=== PATIENT | female | born 1970 | race American Indian/Alaskan Native ===

== ENCOUNTER 2016-06-11 12:33 | Inpatient (IN) | payer OTHER ==
--- NOTE | 2016-06-11 13:05 | Emergency Department Report ---
HPI - General Chief Complaint: Dyspnea/Respdistress Time Seen by Provider: 06/11/16 12:56 - HPI HPI: Chief complaint: Shortness of breath HPI: Patient is a 45-year-old female with history of obesity and hypertension states she began having shortness of breath last night with left-sided chest pain. Patient states shortness of breath is worse on laying flat seems to be better when she lay on her right side. Patient states she thinks she has been wheezing but has no history of asthma COPD or smoking. Patient states she's had leg edema for the last 9 years and is no worse or different. Patient states she did have some productive cough with green sputum that started last night. No fever, nausea, vomiting or diarrhea. Patient takes Tenoretic 50 mg a day and has been trying to stretch it out by not taking it every day as she has lost her insurance. Mode of arrival: private car Source: Patient Began: Last night in the middle of the night Duration: Continuous Context: Patient denies history of congestive heart failure Quality: Heaviness Severity: 7 out of 10 Improved with: Nothing Worsened with: Exertion and laying flat Associated signs and symptoms: See above ED Past Medical Hx - Past Medical History Previous Medical History?: Yes Hx Hypertension: Yes - Medications Home Medications: Home Medications Medication Instructions Recorded Confirmed Last Taken Type Lisinopril/Hydrochlorothiazide 1 tab PO DAILY 06/11/16 06/11/16 Unknown History [Zestoretic 20-25 mg] ED Review of Systems ROS: Stated complaint: CHEST PAIN,SOB Other details as noted in HPI ROS Constitutional: No fever ENT: No uri symptoms Cardiovascular: chest pain Respiratory: sob and cough GI: No nausea vomiting or diarrhea : No dysuria frequency or urgency, Skin: No rash Neuro: No focal weakness or numbness Psych: No depression Bhupendra/lymph: edema Physical Exam - Physical Exam Vital Signs: Vital Signs 06/11/16 12:38 Temperature 99.2 F Pulse Rate 92 H Respiratory 22 Rate Blood Pressure 191/103 O2 Sat by Pulse 100 Oximetry Physical Exam: GENERAL: The patient is an obese -Tajik female in no acute distress HEENT: Normocephalic. Atraumatic. Extraocular motions are intact. Patient has moist mucous membranes. NECK: Supple. No meningitic signs are noted. There is no adenopathy noted. CHEST/LUNGS: Clear to auscultation. There is no respiratory distress noted. HEART/CARDIOVASCULAR: Regular. There is no tachycardia. ABDOMEN: Abdomen is soft, nontender. Patient has normal bowel sounds. There is no abdominal distention. SKIN: There is no rash. There is bilateral pedal edema. There is no diaphoresis. NEURO: The patient is awake, alert, and oriented. The patient is cooperative. The patient has no focal neurologic deficits. The patient has normal speech. MUSCULOSKELETAL: There is no tenderness or deformity. There is no limitation range of motion. There is no evidence of acute injury. ED Course Vital Signs 06/11/16 12:38 Temperature 99.2 F Pulse Rate 92 H Respiratory 22 Rate Blood Pressure 191/103 O2 Sat by Pulse 100 Oximetry - Reevaluation(s) Reevaluation #1: 06/11/16 16:37 Patient given 20 mg of IV Lasix, sublingual nitroglycerin an inch of nitroglycerin paste. Patient admitted to the hospitalist. Because of her elevated d-dimer CTA of the chest was performed and showed no pulmonary embolism. ED Medical Decision Making - Lab Data Result diagrams: 06/11/16 13:00 06/11/16 13:00 Laboratory Tests 06/11/16 06/11/16 13:00 13:00 D-Dimer 1297.28 H NT-Pro-B Natriuret Pep 567.5 H - EKG Data -: EKG Interpreted by Me EKG shows normal: sinus rhythm Rate: normal (97) - EKG Data When compared to previous EKG there are: previous EKG unavailable Interpretation: normal EKG (except for possible left atrial enlargement) - Radiology Data Radiology results: report reviewed (CTA of the chest shows no pulmonary embolus but bilateral groundglass infiltrates greater on the right and right upper lobe airspace period related possibly to infectious etiology, asymmetrical distribution of pulmonary edema hypersensitivity pneumonia and other possibilities.) interpreted by me: Chest x-ray shows cardiomegaly and congestive heart failure. Critical care attestation.: If time is entered above; I have spent that time in minutes in the direct care of this critically ill patient, excluding procedure time. ED Disposition Clinical Impression: Congestive heart failure (CHF) Qualifiers: Congestive heart failure type: unspecified congestive heart failure type Congestive heart failure chronicity: acute Qualified Code(s): I50.9 - Heart failure, unspecified Disposition: OP ADMITTED IP TO THIS HOSP Is pt being admited?: Yes Does the pt Need Aspirin: Yes Condition: Fair Referrals: PRIMARY CARE, [Primary Care Provider] - 3-5 Days Time of Disposition: 14:24 (admit to the hospitalist)
[2016-06-11 13:15] LABS: Basophils % (Auto) 0.3 % (0.0-1.8); Eosinophils % (Auto) 0.2 % (0.0-4.3); Hematocrit 38.6 % (30.3-42.9); Hemoglobin 12.6 gm/dl (10.1-14.3); Mean Corpuscular HGB Conc 33 % (30-34); Mean Corpuscular Hemoglobin 28 pg (28-32); Mean Corpuscular Volume 86 fl (79-97); Platelet Count 208 K/mm3 (140-440); Red Blood Count 4.49 M/mm3 (3.65-5.03); Red Cell Distribution Width 13.7 % (13.2-15.2); White Blood Count 9.2 K/mm3 (4.5-11.0)
[2016-06-11 13:35] LABS: Anion Gap 20 mmol/L; Blood Urea Nitrogen 9 mg/dL (7-17); Carbon Dioxide 25 mmol/L (22-30); Chloride 101.3 mmol/L (98-107); Glucose 94 mg/dL (65-100); Potassium 3.5 mmol/L (3.6-5.0); Sodium 143 mmol/L (137-145)
--- NOTE | 2016-06-11 13:40 | Admit Criteria Form ---
Admission Criteria Documentation: HEART FAILURE: COMMON COMPLICATIONS Clinical Indications for Inpatient Care (Place 'X' for any and all applicable criteria): Ongoing inpatient care may be indicated for heart failure with ANY ONE of the following (1)(2)(3)(4)(5): [ ]I. Ongoing need for care for primary condition requiring frequent therapy adjustments because of changes in cardiac function (eg, drug dosage changes for drugs that are renally metabolized) [ ]II. New-onset heart failure [ ]III. Heart failure with decreased urine output not responsive to attempts to optimize volume status [ ]IV. Acute cardiac ischemia causing or associated with failure [X ]V. Complications of heart failure, including ANY ONE of the following: [ ]a) Pericardial effusion [ ]b) Symptomatic pleural effusion [ ]c) O2 saturation <90% or PO2 < 60 mm Hg (8.0 kPa) on room air or require baseline supplemental O2 [ ]d) Tachypnea [X ]e) Dyspnea [ ]f) Syncope [ ]g) Change in mental status [ ]h) Acute renal insufficiency that is severe (reduction of more than 50% in estimated glomerular filtration rate from baseline) or progressive reduction of more than 25% in estimated glomerular filtration rate from baseline, with creatinine continuing to rise) [ ]i) Hemodynamic instability [ ]j) Anasarca [ ]k) Clinically significant metabolic abnormalities due to heart failure (eg, new-onset metabolic acidosis) Extended stay beyond goal length of stay for primary condition may be needed until ALL of the following are present(1)(3): [ ]a) Stable and effective diuretic regimen established (or patient on stable dialysis regimen if in chronic renal failure) [ ]b) Breathing comfortably at rest [ ]c) Saturation of arterial oxygen greater than 90% or at acceptable baseline [ ]d) Pulmonary edema absent or improved [ ]e) Hemodynamic stability [ ]f) Volume status acceptable on oral medication [ ]g) Peripheral or sacral edema absent or improved [ ]h) Renal function stable and manageable at a lower level of care [ ]i) Complications (eg, pleural effusion) resolved or manageable at a lower level of care [ ]j) Patient or caregiver has received written discharge instructions or educational material addressing activity level, diet, discharge medications, follow-up appointment, weight monitoring, and what to do if symptoms worsen The original [employer] [facility] content created by [employer] has been revised. The portions of the content which have been revised are identified through the use of italic text or in bold, and [facility] has neither reviewed nor approved the modified material.All other unmodified content is copyright [facility]. Please see references footnoted in the original [facility] edition 2016 Admission Criteria Met: Yes
[2016-06-11] MEDS ORDERED: LASIX IV ONE (13:41)
--- NOTE | 2016-06-11 13:42 | XRay Report ---
ROUTINE CHEST, TWO VIEWS: HISTORY: chest pain. There is borderline to mild cardiomegaly and central pulmonary venous congestion. The lungs are clear. No evidence for pneumonia, pleural effusion or pneumothorax. The thoracic cage is intact. IMPRESSION: Borderline heart size and pulmonary vascularity. No CHF.
[2016-06-11] MEDS ORDERED: NITRO-BID 2% TP ONE (14:30)
[2016-06-11] MEDS ORDERED: NITROSTAT SL PRN (14:30)
--- NOTE | 2016-06-11 16:12 | Cat Scan Report ---
CT angiography of the chest with 3-D reconstructed images. History: Chest pain. Findings: There is no evidence of pulmonary emboli. Multiple areas of airspace disease are most pronounced in the right upper lobe with additional areas of groundglass opacity throughout the right lung and to a lesser degree in the left upper lobe. No pulmonary masses are seen. There is no pleural fluid. Impression: 1. No evidence of pulmonary emboli. 2. Bilateral groundglass infiltrates greater on the right and right upper lobe airspace disease. These findings could be related to an infectious etiology, asymmetric distribution of pulmonary edema, hypersensitivity pneumonia, and numerous additional entities.
[2016-06-11] MEDS ORDERED: ASPIRIN PO ONE (16:38)
[2016-06-11] MEDS ORDERED: TYLENOL PO ONE (17:53)
--- NOTE | 2016-06-11 21:16 | History and Physical Report ---
History of Present Illness Date of examination: 06/11/16 Date of admission: 06/11/16 16:39 Chief complaint: SOB since last night History of present illness: 45 y/0 AAF with hx of HTN and Obesity non compliant with meds comes in for increasing SOB since last night.Orthopnea present .Also Chest tightness .Patient says she also has cough productive of mucoid to yellow sputum.No wheezing. Past History Past Medical History: hypertension, other (Obesity) Medications and Allergies Allergies Allergy/AdvReac Type Severity Reaction Status Date / Time acetaminophen [From Lortab] Allergy Unknown Verified 06/11/16 12:38 hydrocodone bitartrate Allergy Unknown Verified 06/11/16 12:38 [From Lortab] Penicillins Allergy Unknown Verified 06/11/16 12:38 Home Medications Medication Instructions Recorded Confirmed Last Taken Type Lisinopril/Hydrochlorothiazide 1 tab PO DAILY 06/11/16 06/11/16 Unknown History [Zestoretic 20-25 mg] Active Meds: Active Medications Nitroglycerin (Nitrostat) 0.4 mg SL .Q5MIN PRN PRN Reason: Chest Pain Last Admin: 06/11/16 14:42 Dose: 0.4 mg Review of Systems All systems: negative Cardiovascular: chest pain, orthopnea, shortness of breath, dyspnea on exertion Respiratory: cough with sputum Exam - Constitutional Vitals: Temp Pulse Resp BP Pulse Ox 99 F 92 H 18 138/71 93 06/11/16 20:41 06/11/16 20:41 06/11/16 20:41 06/11/16 20:41 06/11/16 20:41 General appearance: Present: no acute distress, well-nourished - EENT Eyes: Present: PERRL ENT: hearing intact, clear oral mucosa - Neck Neck: Present: supple, normal ROM - Respiratory Respiratory effort: normal Respiratory: bilateral: CTA - Cardiovascular Heart Sounds: Present: S1 & S2. Absent: rub, click - Extremities Extremities: pulses symmetrical, No edema Peripheral Pulses: within normal limits - Abdominal General gastrointestinal: Present: soft, non-tender, non-distended, normal bowel sounds Female genitourinary: Present: normal - Integumentary Integumentary: Present: clear, warm, dry - Musculoskeletal Musculoskeletal: gait normal, strength equal bilaterally - Psychiatric Psychiatric: appropriate mood/affect, intact judgment & insight - Neurologic Neurologic: CNII-XII intact, moves all extremities Results - Labs CBC & Chem 7: 06/12/16 03:14 06/12/16 03:14 - Imaging and Cardiology EKG: report reviewed (NSR rate 80/min) Chest x-ray: report reviewed (Cardiomegaly and CHF) CT scan - chest: report reviewed (CTA no pulmonary embolism.pulmonary edema vs infiltrates) Assessment and Plan - Patient Problems (1) Acute exacerbation of congestive heart failure Current Visit: Yes Status: Acute Qualifiers: Congestive heart failure type: combined Qualified Code(s): I50.43 - Acute on chronic combined systolic (congestive) and diastolic (congestive) heart failure Plan to address problem: New Onset Check ECHO Lasix IV 40 q24 (2) HTN (hypertension) Current Visit: Yes Status: Acute Qualifiers: Hypertension type: essential hypertension Qualified Code(s): I10 - Essential (primary) hypertension Plan to address problem: Cont Zestoretic (3) Bronchitis Current Visit: Yes Status: Acute Plan to address problem: Mild-IV Levaquin (4) DVT prophylaxis Current Visit: Yes Status: Acute Plan to address problem: Lovenox 40 mg sq qd
[2016-06-11] MEDS ORDERED: ZOFRAN IV PRN (21:20)
[2016-06-11] MEDS ORDERED: DULCOLAX PR PRN (21:20)
[2016-06-11] MEDS ORDERED: TYLENOL PO PRN (21:20)
[2016-06-11] MEDS ORDERED: PERCOCET 5/325 PO PRN (21:20)
[2016-06-11] MEDS ORDERED: MILK OF MAGNESIA PO PRN (21:20)
[2016-06-11] MEDS ORDERED: SODIUM CHLORIDE FLUSH SYRINGE 10 ML IV PRN (21:27)
[2016-06-11] MEDS: LASIX IV SCH (22:34)
[2016-06-11] MEDS: PEPCID PO SCH (22:34)
[2016-06-11 22:41] LABS: Creatine Kinase 135 units/L (30-135); Creatine Kinase MB 2.2 ng/mL (0.0-4.0)
[2016-06-12 03:39] LABS: Basophils % (Auto) 0.4 % (0.0-1.8); Eosinophils % (Auto) 1.3 % (0.0-4.3); Hematocrit 34.5 % (30.3-42.9); Hemoglobin 11.4 gm/dl (10.1-14.3); Mean Corpuscular HGB Conc 33 % (30-34); Mean Corpuscular Hemoglobin 28 pg (28-32); Mean Corpuscular Volume 85 fl (79-97); Platelet Count 191 K/mm3 (140-440); Red Blood Count 4.06 M/mm3 (3.65-5.03); Red Cell Distribution Width 13.9 % (13.2-15.2); White Blood Count 6.9 K/mm3 (4.5-11.0)
[2016-06-12 03:51] LABS: Creatine Kinase MB 1.8 ng/mL (0.0-4.0)
[2016-06-12 03:53] LABS: Alanine Aminotransferase 9 units/L (7-56); Albumin 3.8 g/dL (3.9-5); Albumin/Globulin Ratio 1.2 %; Alkaline Phosphatase 78 units/L (35-129); Anion Gap 16 mmol/L; Bilirubin,Total 0.3 mg/dL (0.1-1.2); Blood Urea Nitrogen 14 mg/dL (7-17); Calcium 8.6 mg/dL (8.4-10.2); Carbon Dioxide 26 mmol/L (22-30); Chloride 102.1 mmol/L (98-107); Glucose 95 mg/dL (65-100); Potassium 3.5 mmol/L (3.6-5.0); Sodium 141 mmol/L (137-145); Total Protein 6.9 g/dL (6.3-8.2)
[2016-06-12 03:54] LABS: Creatine Kinase 130 units/L (30-135)
[2016-06-12] MEDS ORDERED: LEXISCAN IV ONE ×2 (08:28→08:46)
[2016-06-12] MEDS ORDERED: PROVENTIL IH PRN (09:30)
--- NOTE | 2016-06-12 10:57 | Query- Dyspnea ---
Rochelle Alba Date:__06/12/2016 Optimization Manager/CDS:__Vamsi Arriaga Phone#: Exercise your independent professional judgment when responding to query. Questions asked do not imply a particular answer is desired or expected. We greatly appreciate your clarification on this issue. Clinical Documentation States: The patient is a [id number] Female who was admitted due to Shortness of Breath , CHF Exacerbation, Acute Bronchitis. "Increasing SOB since last night.Orthopnea present" (Dr. Alba in H&P on 06/11/2016 ). Pulse Rate 103 Respiratory Rate 49 Please clarify if the patient had any of the following conditions based on the above clinical findings: [ ] Respiratory Failure [ ] Acute [ ] Acute on Chronic [ ] Chronic [ ] Respiratory failure due to trauma [ ] Acute Respiratory Distress Syndrome [ ] Other: [ ] Unable to determine [ ] Comment/Explanation: Present on Admission: [ ] Yes (Y) [ ] Clinically undeterminable (W) [ ] No (N) Please also document response in your Progress Notes and/or Discharge Summary and indicate if the condition was present on admission. MTDD
[2016-06-12] MEDS ORDERED: PNEUMOVAX 23 IM ONE (12:00)
--- NOTE | 2016-06-12 12:06 | Consultation ---
History of Present Illness Consult date: 06/12/16 Consult reason: chest pain History of present illness: 45 year old female admitted with chest tightness x several hours. Patient is known hypertensive, takes a beta brenda at home. CT chest done this admission is showing bilateral ground glass infiltrates suggesting early pulmonary edema vs possible inflammatory process. MPI done this admission is showing evidence of a moderate size, moderately reversible inferior wall defect suggesting ischemia in the RCA distribution. Past History Past Medical History: hypertension, other (Obesity) Past Surgical History: No surgical history Social history: no significant social history Family history: no significant family history Medications and Allergies Allergies Allergy/AdvReac Type Severity Reaction Status Date / Time acetaminophen [From Lortab] Allergy Unknown Verified 06/11/16 12:38 hydrocodone bitartrate Allergy Unknown Verified 06/11/16 12:38 [From Lortab] Penicillins Allergy Unknown Verified 06/11/16 12:38 Home Medications Medication Instructions Recorded Confirmed Last Taken Type Lisinopril/Hydrochlorothiazide 1 tab PO DAILY 06/11/16 06/11/16 Unknown History [Zestoretic 20-25 mg] Active Meds: Active Medications Acetaminophen (Tylenol) 650 mg PO Q4H PRN PRN Reason: Pain MILD(1-3)/Fever >100.5/ALEJANDRO Albuterol (Proventil) 2.5 mg IH Q4HRT PRN PRN Reason: Shortness Of Breath Albuterol/Ipratropium (Duoneb 0.5 Mg-3 Mg/3 Ml Soln) 1 ampul IH Q6HRT [facility] Bisacodyl (Dulcolax) 10 mg NH QDAY PRN PRN Reason: Constipation unrelieved by MOM Famotidine (Pepcid) 20 mg PO BID [facility] Last Admin: 06/11/16 22:34 Dose: 20 mg Furosemide (Lasix) 40 mg IV QDAY [facility] Last Admin: 06/11/16 22:34 Dose: 40 mg Hydralazine HCl (Apresoline) 10 mg IV Q4H PRN PRN Reason: Hypertension Levofloxacin/Dextrose (Levaquin 750mg/150ml) 750 mg in 150 mls @ 100 mls/hr IV Q24H [facility] PRN Reason: Protocol Magnesium Hydroxide (Milk Of Magnesia) 30 ml PO Q4H PRN PRN Reason: Constipation Nitroglycerin (Nitrostat) 0.4 mg SL .Q5MIN PRN PRN Reason: Chest Pain Last Admin: 06/11/16 14:42 Dose: 0.4 mg Ondansetron HCl (Zofran) 4 mg IV Q8H PRN PRN Reason: N/V unrelieved by Reglan Oxycodone/Acetaminophen (Percocet 5/325) 1 tab PO Q6H PRN PRN Reason: Pain, Moderate (4-6) Potassium Chloride (K-Dur) 20 meq PO QDAY RIOS Sodium Chloride (Sodium Chloride Flush Syringe 10 Ml) 10 ml IV PRN PRN PRN Reason: LINE FLUSH Review of Systems All systems: negative Physical Examination Vital Signs Temp Pulse Resp BP Pulse Ox 99.2 F 92 H 22 191/103 100 06/11/16 12:38 06/11/16 12:38 06/11/16 12:38 06/11/16 12:38 06/11/16 12:38 General appearance: no acute distress HEENT: Positive: PERRL Neck: Positive: neck supple Cardiac: Positive: Reg Rate and Rhythm Lungs: Positive: Normal Exam Neuro: Positive: Grossly Intact Abdomen: Positive: Soft Extremities: Present: normal Results 06/12/16 03:14 06/12/16 03:14 Cardiac Enzymes 06/11/16 06/12/16 06/12/16 Range/Units 21:36 03:14 03:14 AST 15 (5-40) units/L CK-MB (CK-2) 2.2 1.8 (0.0-4.0) ng/mL CBC 06/12/16 Range/Units 03:14 WBC 6.9 (4.5-11.0) K/mm3 RBC 4.06 (3.65-5.03) M/mm3 Hgb 11.4 (10.1-14.3) gm/dl Hct 34.5 (30.3-42.9) % Plt Count 191 (140-440) K/mm3 Lymph # 2.1 (1.2-5.4) K/mm3 [place] # 0.5 (0.0-0.8) K/mm3 Eos # 0.1 (0.0-0.4) K/mm3 Baso # 0.0 (0.0-0.1) K/mm3 Comprehensive Metabolic Panel 06/12/16 Range/Units 03:14 Sodium 141 (137-145) mmol/L Potassium 3.5 L (3.6-5.0) mmol/L Chloride 102.1 (98-107) mmol/L Carbon Dioxide 26 (22-30) mmol/L BUN 14 (7-17) mg/dL Creatinine 0.5 L (0.7-1.2) mg/dL Glucose 95 (65-100) mg/dL Calcium 8.6 (8.4-10.2) mg/dL AST 15 (5-40) units/L ALT 9 (7-56) units/L Alkaline Phosphatase 78 (35-129) units/L Total Protein 6.9 (6.3-8.2) g/dL Albumin 3.8 L (3.9-5) g/dL EKG interpretations - Telemetry EKG Rhythm: Sinus Rhythm Assessment and Plan Chest tightness Abnormal MPI - moderate size moderately reversible inferior wall defect consistent with ischemia in the RCA distribution Echo - normal LVEF, moderate concentric LVH Systemic Hypertension Obesity Recommendations: Coronary angiography on wednesday
--- NOTE | 2016-06-12 12:29 | Echocardiography Report ---
PROCEDURE: Transthoracic echocardiogram. INDICATION: Congestive heart failure. ORDERING PHYSICIAN: Jomar Alba M.D. FINDINGS: 1. The left ventricle is normal in size and systolic function with the left ventricular ejection fraction estimated between 60% and 65%. There is moderate concentric left ventricular hypertrophy with evidence of grade 1 diastolic dysfunction. 2. The left atrium is normal in size. 3. The right ventricle is normal in size and systolic function. 4. The right atrium is normal in size. 5. The aortic valve is trileaflet with normal function. 6. The mitral valve is normal in structure and function. 7. The tricuspid valve is normal in structure with evidence of mild tricuspid regurgitation. 8. The pulmonic valve is normal in structure and function. 9. There is no evidence of pericardial effusion. 10. The aortic root is normal in size. 11. The inferior vena cava is normal in size and respiratory variations. CONCLUSION: 1. Normal left ventricular size and systolic function with an ejection fraction estimated between 60% and 65%. 2. Moderate concentric left ventricular hypertrophy with grade 1 diastolic dysfunction. 3. Mild tricuspid regurgitation. JOB# [id number] FARZANEH/MADDIE
--- NOTE | 2016-06-12 14:02 | Treadmill Report ---
INDICATION: Chest pain, shortness of breath. FINDINGS: There is evidence of a moderate size, moderately reversible inferior wall defect suggesting possible ischemia in the right coronary artery distribution. The left ventricular ejection fraction is measured at 66%. Normal wall motion is noted on gated imaging. CONCLUSION: 1. Abnormal perfusion scan revealing a moderate size, moderately reversible inferior wall defect suggesting ischemia in the right coronary artery distribution. 2. Normal left ventricular size and systolic function. 3. Clinical correlation is recommended. JOB# [id number] FARZANEH/MADDIE
[2016-06-12] MEDS: PEPCID PO SCH ×2 (14:15→21:13)
[2016-06-12] MEDS: TOPROL XL PO SCH (14:15)
[2016-06-12] MEDS: K-DUR PO SCH (14:15)
[2016-06-12] MEDS: LASIX IV SCH (14:15)
[2016-06-12] MEDS: DUONEB 0.5 MG-3 MG/3 ML SOLN IH SCH ×2 (15:01→21:33)
--- NOTE | 2016-06-12 17:24 | Progress Note ---
Assessment and Plan Assessment and plan: 45 y/0 AAF with hx of HTN and Obesity non compliant with meds comes in for increasing SOB since last night.Orthopnea present .Also Chest tightness .Patient says she also has cough productive of mucoid to yellow sputum.No wheezing. * Angina * Hypertensive urgency -better controlled * Acute respiratory failure -improved likely related to chest pain * Morbid obesity BMI 46.7 * Noncompliance Plan * Patient had a stress test that showed evidence of a moderate size, moderately reversible inferior wall defect suggesting ischemia in the RCA distribution. * Plan for cardiac catheterization on Wednesday * We'll change Lasix to by mouth * We'll recommend repeat imaging study to reevaluate ground glass infiltrates if resolved. * Patient denies history of tobacco use or secondhand smoking. * Weight loss modalities discussed in detail with the patient. * I also discussed compliance and she states she never followed up with her primary care doctor and respiratory her blood pressure. Her blood pressure has consistently been in the 190s systolic at home. * Continue beta brenda History Interval history: Follow-up chest pain Patient seen and examined this morning in no acute distress Denies any chest pain, nausea, vomiting, diarrhea No fever noted blood pressure controlled No adverse events reported to me by nursing staff Hospitalist Physical - Physical exam Narrative exam: VITAL SIGNS: Reviewed. GENERAL: The patient appeared well nourished and normally developed. Vital signs as documented. HEAD: No signs of head trauma. EYES: Pupils are equal. Extraocular motions intact. EARS: Hearing grossly intact. MOUTH: Oropharynx is normal. NECK: No adenopathy, no JVD. CHEST: Chest with clear breath sounds bilaterally. No wheezes, rales, or rhonchi. CARDIAC: Regular rate and rhythm. S1 and S2, without murmurs, gallops, or rubs. VASCULAR: No Edema. Peripheral pulses normal and equal in all extremities. ABDOMEN: Soft, without detectable tenderness. No sign of distention. No rebound or guarding, and no masses palpated. Bowel Sounds normal. MUSCULOSKELETAL: Good range of motion of all major joints. Extremities without clubbing, cyanosis or edema. NEUROLOGIC EXAM: Alert and oriented x 3. No focal sensory or strength deficits. Speech normal. Follows commands. PSYCHIATRIC: Mood normal. SKIN: No rash or lesions. - Constitutional Vitals: Temp Pulse Resp BP Pulse Ox 97.3 F L 79 20 180/84 97 06/12/16 12:25 06/12/16 15:10 06/12/16 15:10 06/12/16 12:25 06/12/16 12:25 General appearance: Present: no acute distress Results - Labs CBC & Chem 7: 06/12/16 03:14 06/12/16 03:14 Labs: Laboratory Last Values WBC 6.9 K/mm3 (4.5-11.0) 06/12/16 03:14 RBC 4.06 M/mm3 (3.65-5.03) 06/12/16 03:14 Hgb 11.4 gm/dl (10.1-14.3) 06/12/16 03:14 Hct 34.5 % (30.3-42.9) 06/12/16 03:14 MCV 85 fl (79-97) 06/12/16 03:14 MCH 28 pg (28-32) 06/12/16 03:14 MCHC 33 % (30-34) 06/12/16 03:14 RDW 13.9 % (13.2-15.2) 06/12/16 03:14 Plt Count 191 K/mm3 (140-440) 06/12/16 03:14 Lymph % (Auto) 30.5 % (13.4-35.0) 06/12/16 03:14 [place] % (Auto) 7.3 % (0.0-7.3) 06/12/16 03:14 Eos % (Auto) 1.3 % (0.0-4.3) 06/12/16 03:14 Baso % (Auto) 0.4 % (0.0-1.8) 06/12/16 03:14 Lymph # 2.1 K/mm3 (1.2-5.4) 06/12/16 03:14 [place] # 0.5 K/mm3 (0.0-0.8) 06/12/16 03:14 Eos # 0.1 K/mm3 (0.0-0.4) 06/12/16 03:14 Baso # 0.0 K/mm3 (0.0-0.1) 06/12/16 03:14 Seg Neutrophils % 60.5 % (40.0-70.0) 06/12/16 03:14 Seg Neutrophils # 4.2 K/mm3 (1.8-7.7) 06/12/16 03:14 D-Dimer 1297.28 ng/mlDDU (0-234) H 06/11/16 13:00 Sodium 141 mmol/L (137-145) 06/12/16 03:14 Potassium 3.5 mmol/L (3.6-5.0) L 06/12/16 03:14 Chloride 102.1 mmol/L (98-107) 06/12/16 03:14 Carbon Dioxide 26 mmol/L (22-30) 06/12/16 03:14 Anion Gap 16 mmol/L 06/12/16 03:14 BUN 14 mg/dL (7-17) 06/12/16 03:14 Creatinine 0.5 mg/dL (0.7-1.2) L 06/12/16 03:14 Estimated GFR > 60 ml/min 06/12/16 03:14 BUN/Creatinine Ratio 28.00 % 06/12/16 03:14 Glucose 95 mg/dL (65-100) 06/12/16 03:14 Hemoglobin A1c 6.0 % (4-6) 06/11/16 13:00 Calcium 8.6 mg/dL (8.4-10.2) 06/12/16 03:14 Total Bilirubin 0.3 mg/dL (0.1-1.2) 06/12/16 03:14 AST 15 units/L (5-40) 06/12/16 03:14 ALT 9 units/L (7-56) 06/12/16 03:14 Alkaline Phosphatase 78 units/L (35-129) 06/12/16 03:14 Total Creatine Kinase 130 units/L (30-135) 06/12/16 03:14 CK-MB (CK-2) 1.8 ng/mL (0.0-4.0) 06/12/16 03:14 CK-MB (CK-2) Rel Index 1.3 (0-4) 06/12/16 03:14 Troponin T < 0.010 ng/mL (0.00-0.029) 06/12/16 03:14 NT-Pro-B Natriuret Pep 567.5 pg/mL (0-450) H 06/11/16 13:00 Total Protein 6.9 g/dL (6.3-8.2) 06/12/16 03:14 Albumin 3.8 g/dL (3.9-5) L 06/12/16 03:14 Albumin/Globulin Ratio 1.2 % 06/12/16 03:14
[2016-06-12] MEDS: LEVAQUIN 750MG/150ML 750 MG/150 ML BAG IV SCH (19:21)
[2016-06-12] MEDS: APRESOLINE IV PRN (21:20)
--- NOTE | 2016-06-13 08:58 | Progress Note ---
Subjective Date of service: 06/13/16 Interval history: No angina, wating for cardiac cath on Wednesday 45 year old female admitted with chest tightness x several hours. Patient is known hypertensive, takes a beta brenda at home. CT chest done this admission is showing bilateral ground glass infiltrates suggesting early pulmonary edema vs possible inflammatory process. MPI done this admission is showing evidence of a moderate size, moderately reversible inferior wall defect suggesting ischemia in the RCA distribution. Objective Vital Signs Temp Pulse Pulse Pulse Resp Resp BP 06/13/16 04:00 98.3 F 74 18 06/13/16 01:00 98.0 F 92 H 18 06/12/16 21:51 79 12 06/12/16 21:38 06/12/16 21:07 80 12 06/12/16 20:33 98.3 F 79 18 06/12/16 20:09 89 06/12/16 18:00 70 06/12/16 16:15 98.1 F 82 20 06/12/16 15:10 79 20 06/12/16 15:01 92 H 18 06/12/16 12:25 97.3 F L 80 20 06/12/16 10:00 97 H 160/84 06/12/16 09:59 103 H 157/95 06/12/16 09:58 96 H 149/72 06/12/16 09:57 105 H 153/82 06/12/16 09:56 101 H 181/78 06/12/16 09:55 106 H 180/84 BP Pulse Ox 06/13/16 04:00 111/67 98 06/13/16 01:00 146/67 98 06/12/16 21:51 06/12/16 21:38 100 06/12/16 21:07 06/12/16 20:33 185/90 96 06/12/16 20:09 06/12/16 18:00 06/12/16 16:15 144/87 06/12/16 15:10 06/12/16 15:01 06/12/16 12:25 180/84 97 06/12/16 10:00 06/12/16 09:59 06/12/16 09:58 06/12/16 09:57 06/12/16 09:56 06/12/16 09:55 - Physical Examination General: Appears Well HEENT: Positive: PERRL Neck: Positive: neck supple Cardiac: Positive: Reg Rate and Rhythm, S1/S2. Negative: S3 Lungs: Positive: Normal Exam Neuro: Positive: Grossly Intact Abdomen: Positive: Soft Extremities: Present: normal - Imaging and Cardiology EKG: report reviewed (NSR rate 80/min)
[2016-06-13] MEDS: PEPCID PO SCH ×2 (09:54→21:51)
[2016-06-13] MEDS: ZESTRIL PO SCH (09:55)
[2016-06-13] MEDS: K-DUR PO SCH (09:55)
[2016-06-13] MEDS: LASIX IV SCH (09:56)
[2016-06-13] MEDS: TOPROL XL PO SCH (09:56)
[2016-06-13] MEDS: LEVAQUIN 750MG/150ML 750 MG/150 ML BAG IV SCH (10:00)
--- NOTE | 2016-06-14 09:19 | Progress Note ---
Subjective Date of service: 06/14/16 Interval history: No cardiac events overnight No angina, wating for cardiac cath on Wednesday 45 year old female admitted with chest tightness x several hours. Patient is known hypertensive, takes a beta brenda at home. CT chest done this admission is showing bilateral ground glass infiltrates suggesting early pulmonary edema vs possible inflammatory process. MPI done this admission is showing evidence of a moderate size, moderately reversible inferior wall defect suggesting ischemia in the RCA distribution. Objective Vital Signs Temp Pulse Pulse Resp Resp BP BP 06/14/16 05:42 98.2 F 64 48 H 121/68 06/14/16 01:38 98.2 F 66 20 133/63 06/14/16 01:06 80 06/13/16 20:32 97.6 F 71 20 130/71 06/13/16 16:00 98.5 F 66 20 168/88 06/13/16 12:00 90 06/13/16 10:00 20 06/13/16 09:56 76 111/67 06/13/16 09:55 74 111/67 Pulse Ox 06/14/16 05:42 91 06/14/16 01:38 98 06/14/16 01:06 06/13/16 20:32 98 06/13/16 16:00 99 06/13/16 12:00 06/13/16 10:00 100 06/13/16 09:56 06/13/16 09:55 - Physical Examination General: Appears Well HEENT: Positive: PERRL Neck: Positive: neck supple Cardiac: Positive: Reg Rate and Rhythm, S1/S2. Negative: S3 Lungs: Positive: Normal Exam Neuro: Positive: Grossly Intact Abdomen: Positive: Soft Extremities: Present: normal - Imaging and Cardiology EKG: report reviewed (NSR rate 80/min)
--- NOTE | 2016-06-14 10:18 | Progress Note ---
Assessment and Plan Assessment and plan: 45 y/0 AAF with hx of HTN and Obesity non compliant with meds comes in for increasing SOB since last night.Orthopnea present .Also Chest tightness .Patient says she also has cough productive of mucoid to yellow sputum.No wheezing. * Angina * Hypertensive urgency -better controlled * Acute respiratory failure -improved likely related to chest pain * Morbid obesity BMI 46.7 * Noncompliance Plan * Patient had a stress test that showed evidence of a moderate size, moderately reversible inferior wall defect suggesting ischemia in the RCA distribution. * Plan for cardiac catheterization tomorrow * continue PO lasix * We'll recommend repeat imaging study to reevaluate ground glass infiltrates if resolved. * Patient denies history of tobacco use or secondhand smoking. * Weight loss modalities discussed in detail with the patient. * I also discussed compliance and she states she never followed up with her primary care doctor and respiratory her blood pressure. Her blood pressure has consistently been in the 190s systolic at home. * Continue beta brenda History Interval history: Follow-up chest pain Patient seen and examined this morning in no acute distress Denies any chest pain, nausea, vomiting, diarrhea No fever noted blood pressure controlled No adverse events reported to me by nursing staff Hospitalist Physical - Physical exam Narrative exam: VITAL SIGNS: Reviewed. GENERAL: The patient appeared well nourished and normally developed. Vital signs as documented. HEAD: No signs of head trauma. EYES: Pupils are equal. Extraocular motions intact. EARS: Hearing grossly intact. MOUTH: Oropharynx is normal. NECK: No adenopathy, no JVD. CHEST: Chest with clear breath sounds bilaterally. No wheezes, rales, or rhonchi. CARDIAC: Regular rate and rhythm. S1 and S2, without murmurs, gallops, or rubs. VASCULAR: No Edema. Peripheral pulses normal and equal in all extremities. ABDOMEN: Soft, without detectable tenderness. No sign of distention. No rebound or guarding, and no masses palpated. Bowel Sounds normal. MUSCULOSKELETAL: Good range of motion of all major joints. Extremities without clubbing, cyanosis or edema. NEUROLOGIC EXAM: Alert and oriented x 3. No focal sensory or strength deficits. Speech normal. Follows commands. PSYCHIATRIC: Mood normal. SKIN: No rash or lesions. - Constitutional Vitals: Temp Pulse Resp BP Pulse Ox 98.2 F 64 48 H 121/68 91 06/14/16 05:42 02/12/17 05:42 06/14/16 05:42 06/14/16 05:42 06/14/16 05:42 General appearance: Present: no acute distress Results - Labs CBC & Chem 7: 06/12/16 03:14 06/12/16 03:14 Labs: Laboratory Last Values WBC 6.9 K/mm3 (4.5-11.0) 06/12/16 03:14 RBC 4.06 M/mm3 (3.65-5.03) 06/12/16 03:14 Hgb 11.4 gm/dl (10.1-14.3) 06/12/16 03:14 Hct 34.5 % (30.3-42.9) 06/12/16 03:14 MCV 85 fl (79-97) 06/12/16 03:14 MCH 28 pg (28-32) 06/12/16 03:14 MCHC 33 % (30-34) 06/12/16 03:14 RDW 13.9 % (13.2-15.2) 06/12/16 03:14 Plt Count 191 K/mm3 (140-440) 06/12/16 03:14 Lymph % (Auto) 30.5 % (13.4-35.0) 06/12/16 03:14 [place] % (Auto) 7.3 % (0.0-7.3) 06/12/16 03:14 Eos % (Auto) 1.3 % (0.0-4.3) 06/12/16 03:14 Baso % (Auto) 0.4 % (0.0-1.8) 06/12/16 03:14 Lymph # 2.1 K/mm3 (1.2-5.4) 06/12/16 03:14 [place] # 0.5 K/mm3 (0.0-0.8) 06/12/16 03:14 Eos # 0.1 K/mm3 (0.0-0.4) 06/12/16 03:14 Baso # 0.0 K/mm3 (0.0-0.1) 06/12/16 03:14 Seg Neutrophils % 60.5 % (40.0-70.0) 06/12/16 03:14 Seg Neutrophils # 4.2 K/mm3 (1.8-7.7) 06/12/16 03:14 D-Dimer 1297.28 ng/mlDDU (0-234) H 06/11/16 13:00 Sodium 141 mmol/L (137-145) 06/12/16 03:14 Potassium 3.5 mmol/L (3.6-5.0) L 06/12/16 03:14 Chloride 102.1 mmol/L (98-107) 06/12/16 03:14 Carbon Dioxide 26 mmol/L (22-30) 06/12/16 03:14 Anion Gap 16 mmol/L 06/12/16 03:14 BUN 14 mg/dL (7-17) 06/12/16 03:14 Creatinine 0.5 mg/dL (0.7-1.2) L 06/12/16 03:14 Estimated GFR > 60 ml/min 06/12/16 03:14 BUN/Creatinine Ratio 28.00 % 06/12/16 03:14 Glucose 95 mg/dL (65-100) 06/12/16 03:14 Hemoglobin A1c 6.0 % (4-6) 06/11/16 13:00 Calcium 8.6 mg/dL (8.4-10.2) 06/12/16 03:14 Total Bilirubin 0.3 mg/dL (0.1-1.2) 06/12/16 03:14 AST 15 units/L (5-40) 06/12/16 03:14 ALT 9 units/L (7-56) 06/12/16 03:14 Alkaline Phosphatase 78 units/L (35-129) 06/12/16 03:14 Total Creatine Kinase 130 units/L (30-135) 06/12/16 03:14 CK-MB (CK-2) 1.8 ng/mL (0.0-4.0) 06/12/16 03:14 CK-MB (CK-2) Rel Index 1.3 (0-4) 06/12/16 03:14 Troponin T < 0.010 ng/mL (0.00-0.029) 06/12/16 03:14 NT-Pro-B Natriuret Pep 567.5 pg/mL (0-450) H 06/11/16 13:00 Total Protein 6.9 g/dL (6.3-8.2) 06/12/16 03:14 Albumin 3.8 g/dL (3.9-5) L 06/12/16 03:14 Albumin/Globulin Ratio 1.2 % 06/12/16 03:14
[2016-06-14] MEDS: K-DUR PO SCH (10:25)
[2016-06-14] MEDS: TOPROL XL PO SCH (10:25)
[2016-06-14] MEDS: PEPCID PO SCH ×2 (10:25→21:41)
[2016-06-14] MEDS: LASIX PO SCH (10:25)
[2016-06-14] MEDS: ZESTRIL PO SCH (10:26)
[2016-06-14] MEDS ORDERED: PNEUMOVAX 23 IM ONE (12:00)
[2016-06-15 05:32] LABS: INR 0.92 (0.87-1.13); Partial Thromboplastin Time 26.4 Sec. (24.2-36.6)
[2016-06-15] MEDS: TOPROL XL PO SCH (09:53)
[2016-06-15] MEDS: LASIX PO SCH (09:54)
[2016-06-15] MEDS: PEPCID PO SCH (09:54)
[2016-06-15] MEDS: K-DUR PO SCH (09:54)
[2016-06-15] MEDS: ZESTRIL PO SCH (09:54)
[2016-06-15] MEDS: XYLOCAINE 2% INFILTRATI ONE ×2 (10:20→11:08)
[2016-06-15] MEDS ORDERED: ECOTRIN PO ONE (10:48)
[2016-06-15] MEDS: CALAN ONE ×3 (11:06→11:23)
[2016-06-15] MEDS: HEPARIN 10,000 UNITS/10 ML ONE ×3 (11:07→11:23)
[2016-06-15] MEDS: VERSED ONE ×2 (11:08→11:19)
[2016-06-15] MEDS: SUBLIMAZE ONE ×2 (11:08→11:19)
[2016-06-15] MEDS: NACL 0.9% 250ML 250 ML ONE ×3 (11:09→11:23)
[2016-06-15] MEDS: HEPARIN/NS 5000 UNIT/500ML(CATH LAB) 1,000 ML IR ONE ×3 (11:09→11:23)
[2016-06-15] MEDS: NITROGLYCERIN SYRINGE 3 ML ONE ×3 (11:09→11:23)
--- NOTE | 2016-06-15 12:06 | Progress Note ---
Assessment and Plan - Patient Problems (1) SOB (shortness of breath) Current Visit: Yes Status: Acute Plan to address problem: Cardiac cath done via R radial, no complications. Findings: 1. Normal coronaries. 2. Normal EF 55%. Stable for cardiac discharge. Subjective Date of service: 06/15/16 Interval history: Cardiac cath done via R radial, no complications. Findings: 1. Normal coronaries. 2. Normal EF 55%. Stable for cardiac discharge. Objective Vital Signs Temp Pulse Pulse Pulse Pulse Resp BP 06/15/16 10:21 98.4 F 72 20 06/15/16 10:00 64 06/15/16 09:54 64 135/62 06/15/16 09:53 64 135/62 06/15/16 08:37 98.3 F 69 18 06/15/16 05:43 98.2 F 65 20 06/15/16 00:00 98.3 F 62 19 06/14/16 21:12 98 F 20 06/14/16 21:08 67 06/14/16 17:21 98.6 F 68 20 BP Pulse Ox 06/15/16 10:21 157/71 98 06/15/16 10:00 06/15/16 09:54 06/15/16 09:53 06/15/16 08:37 135/62 97 06/15/16 05:43 121/62 97 06/15/16 00:00 178/70 98 06/14/16 21:12 172/77 94 06/14/16 21:08 06/14/16 17:21 134/80 98 - Physical Examination General: Appears Well HEENT: Positive: PERRL Neck: Positive: neck supple Cardiac: Positive: Reg Rate and Rhythm Lungs: Positive: Decreased Breath Sounds Neuro: Positive: Grossly Intact Abdomen: Positive: Soft Extremities: Absent: edema - Labs and Meds Coagulation 06/15/16 Range/Units 04:56 PT 12.3 (12.2-14.9) Sec. INR 0.92 (0.87-1.13) APTT 26.4 (24.2-36.6) Sec. - Imaging and Cardiology EKG: report reviewed (NSR rate 80/min)
[2016-06-15 12:13] VITALS: BP 173/90
[2016-06-15] MEDS: APRESOLINE IV PRN (12:13)
--- NOTE | 2016-06-15 12:13 | Cardiac Catherization Report ---
CARDIAC CATHETERIZATION REASON FOR PROCEDURE: Shortness of breath, abnormal thallium stress test. DESCRIPTION OF PROCEDURE: The patient was prepped and draped in a sterile fashion after informed consent. The right radial artery was entered using the Seldinger technique followed by placement of a 5-[place] hydrophilic sheath. Routine radial cocktail was administered via the sheath. A #3.5 left Delfino catheter was used for left coronary angiography. A #4 right Delfino was used for right coronary angiography. The pigtail catheter was used for left ventricular angiography. The catheters were removed, sheath removed, and hemostasis achieved using manual compression. The patient was returned to the postprocedure unit in stable condition. There were no complications. FINDINGS: HEMODYNAMICS: Left ventricle end diastolic pressure was 15, following coronary angiography. Ascending aortic pressure was 195/98. There was no significant pressure gradient on pullback across the aortic valve. CORONARY ANGIOGRAPHY: The left main coronary artery was angiographically normal. The left anterior descending artery and its diagonal branches were angiographically normal. The circumflex artery was dominant, this vessel and its obtuse marginal branches were angiographically normal. The right coronary artery was small caliber, nondominant, and also free of significant disease. Left ventricular chamber size was at the upper limits of normal. Left ventricular systolic function was well preserved, left ventricular ejection fraction 55%. CONCLUSION: 1. Angiographically normal coronary arteries. 2. Left ventricular systolic function at the lower limits of normal, ejection fraction 55%. RECOMMENDATION: Risk factor modification and medical therapy. JOB# [id number] CA/NTS
[2016-06-15] MEDS ORDERED: NACL 0.9% 1000 ML 1,000 ML IV SCH (13:00)
--- NOTE | 2016-06-15 13:34 | Discharge Summary ---
Providers - Providers Date of Admission: 06/11/16 16:39 Date of discharge: 06/15/16 Attending physician: KIYA CASAS MD 06/11/16 Consult to Cardiac Rehabilitation [CONS] Routine Reason For Exam: Phase I 06/11/16 21:25 Consult to Physician [CONS] Routine Consulting Provider: JORJE BUSTILLOS Reason For Exam: CHF -new onset Place consult to:: dr bustillos Notified:: dr bustillos 06/15/16 12:06 Consult to Cardiac Rehabilitation [CONS] Routine Reason For Exam: Cardiac Rehab Evaluation Primary care physician: PLUMBER Hospitalization Reason for admission: chest pain Condition: Stable Hospital course: 45 y/0 AAF with hx of HTN and Obesity non compliant with meds comes in for increasing SOB since last night.Orthopnea present .Also Chest tightness .Patient says she also has cough productive of mucoid to yellow sputum. No wheezing. Patient had started to have a stress test that came back positive and proceeded to have a cardiac cath done, showed normal coronaries. Toprol was added for better control of blood pressure and this was achieved. I've discussed with the patient about accurate monitoring her blood pressure. She understands the risk of uncontrolled blood pressure. She is currently stable at this point to be discharged. She will follow with cardiology and her PCP for blood pressure control. Her respiratory status also improved. We did discuss weight loss modalities. She verbalized understanding. * Angina secondary to hypertensive urgency * Hypertensive urgency -better controlled * Acute respiratory failure * Morbid obesity BMI 46.7 * Noncompliance Disposition: DISCHARGED TO HOME OR SELFCARE Time spent for discharge: 35 mins Core Measure Documentation - Palliative Care Palliative Care/ Comfort Measures: Not Applicable - Core Measures Any of the following diagnoses?: none - VTE Discharge Requirements Deep Vein Thrombosis/Pulmonary Embolism Present on Admission: No Exam - Physical Exam Narrative exam: VITAL SIGNS: Reviewed. GENERAL: The patient appeared well nourished and normally developed. Vital signs as documented. HEAD: No signs of head trauma. EYES: Pupils are equal. Extraocular motions intact. EARS: Hearing grossly intact. MOUTH: Oropharynx is normal. NECK: No adenopathy, no JVD. CHEST: Chest with clear breath sounds bilaterally. No wheezes, rales, or rhonchi. CARDIAC: Regular rate and rhythm. S1 and S2, without murmurs, gallops, or rubs. VASCULAR: No Edema. Peripheral pulses normal and equal in all extremities. ABDOMEN: Soft, without detectable tenderness. No sign of distention. No rebound or guarding, and no masses palpated. Bowel Sounds normal. MUSCULOSKELETAL: Good range of motion of all major joints. Extremities without clubbing, cyanosis or edema. NEUROLOGIC EXAM: Alert and oriented x 3. No focal sensory or strength deficits. Speech normal. Follows commands. PSYCHIATRIC: Mood normal. SKIN: No rash or lesions. - Constitutional Vitals: Temp Pulse Resp BP Pulse Ox 98.1 F 73 20 173/90 100 06/15/16 12:29 06/15/16 12:29 06/15/16 12:29 06/15/16 12:29 06/15/16 12:29 Plan Activity: advance as tolerated, up only with assistance Diet: low fat, low salt Special Instructions: record daily BP diary Follow up with: PRIMARY MD MICHAEL [Primary Care Provider] - 3-5 Days JORJE BUSTILLOS MD [Staff Physician] - 14 Days Prescriptions: Lisinopril/Hydrochlorothiazide [Zestoretic 20-25 mg] 1 tab PO QDAY #30 tab Metoprolol Xl [Metoprolol SUCCINATE ER TAB] 50 mg PO QDAY #30 tablet
== END 2016-06-15 14:57 | disposition home or self-care (01) | DRG 286 ==
LOC: ED 12:33 → 4A 16:39
PROVIDERS: ADMIT Internal Medicine; ATTEND Internal Medicine
PROC: B2111ZZ Fluoroscopy of Multiple Coronary Arteries using Low Osmolar Contrast (ICD-10-PCS; principal; 2016-06-15)
PROC: B2151ZZ Fluoroscopy of Left Heart using Low Osmolar Contrast (ICD-10-PCS; 2016-06-15)
PROC: 4A023N7 Measurement of Cardiac Sampling and Pressure, Left Heart, Percutaneous Approach (ICD-10-PCS; 2016-06-15)
DX: I16.0 Hypertensive urgency (principal); I50.43 Acute on chronic combined systolic (congestive) and diastolic (congestive) heart failure; J96.01 Acute respiratory failure with hypoxia; Z68.42 Body mass index [BMI] 45.0-49.9, adult; I20.9 Angina pectoris, unspecified; I11.0 Hypertensive heart disease with heart failure; J20.9 Acute bronchitis, unspecified; Z88.8 Allergy status to other drugs, medicaments and biological substances; Z88.5 Allergy status to narcotic agent; Z88.0 Allergy status to penicillin; Z91.19 Patient's noncompliance with other medical treatment and regimen; E66.01 Morbid (severe) obesity due to excess calories
CPT/HCPCS: 36415; 71020; 71275; 78452; 80048; 80053; 82550; 82553; 83036; 83880; 84484; 85025; 85379; 85610; 85730; 90732; 93005; 93010; 93017; 93306; 94640; 96374; A9270-GY; A9502; J0360; J1644; J1940; J1956; J2250; J2785; J3010; J7030; J7050; Q9967

== ENCOUNTER 2017-05-01 21:25 | Emergency (ER) | payer BC ==
[2017-05-01] MEDS ORDERED: TYLENOL PO ONE (22:44)
[2017-05-01] MEDS ORDERED: TYLENOL ONE (22:46)
[2017-05-02] MEDS ORDERED: XYLOCAINE 1% 20 mL INFILTRATI ONE (00:31)
--- NOTE | 2017-05-02 00:55 | Emergency Department Report ---
Abscess Boil HPI - HPI Chief Complaint: Skin/Abscess/Foreign Body Stated Complaint: BOIL Time Seen by Provider: 05/02/17 00:10 Duration: 1 Week Location: Head (patient has several areas of fluctuance and induration on the scalp worse is on the posterior scalp and juntion of the neck) Severity: Moderate (patient states pain is 8 out of 10) History: Yes Pain, Yes Purulent Drainage, No Fever, No Numbness, No Foreign Body , No Previous History HPI: Patient states she was dying her hair a week ago and had an allergic reaction. Patient states she was scratching quite a bit. Patient states 2 days after that she started getting boils on her scalp. She has taken a full course of Bactrim with no relief. Patient states the abscess on the posterior scalp is worse it is getting much much better Home Medications: Previous Rx's Medication Instructions Recorded Last Taken Type Lisinopril/Hydrochlorothiazide 1 tab PO QDAY #30 tab 06/15/16 Unknown Rx [Zestoretic 20-25 mg] Metoprolol Xl [Metoprolol 50 mg PO QDAY #30 tablet 06/15/16 Unknown Rx SUCCINATE ER TAB] Doxycycline [Vibramycin CAP] 100 mg PO Q12HR #14 capsule 05/02/17 Unknown Rx Ibuprofen [Motrin] 800 mg PO Q8HR PRN #15 tablet 05/02/17 Unknown Rx Allergies/Adverse Reactions: Allergies Allergy/AdvReac Type Severity Reaction Status Date / Time acetaminophen [From Lortab] Allergy Unknown Verified 05/01/17 21:43 hydrocodone bitartrate Allergy Unknown Verified 05/01/17 21:43 [From Lortab] Penicillins Allergy Unknown Verified 05/01/17 21:43 ED Review of Systems ROS: Stated complaint: BOIL Other details as noted in HPI Comment: All other systems reviewed and negative ED Past Medical Hx - Past Medical History Hx Hypertension: Yes Hx Congestive Heart Failure: No Hx Diabetes: No Hx Asthma: No Hx COPD: No Additional medical history: Murmur - Social History Smoking Status: Never Smoker Substance Use Type: None - Medications Home Medications: Home Medications Medication Instructions Recorded Confirmed Last Taken Type Lisinopril/Hydrochlorothiazide 1 tab PO QDAY #30 tab 06/15/16 Unknown Rx [Zestoretic 20-25 mg] Metoprolol Xl [Metoprolol 50 mg PO QDAY #30 tablet 06/15/16 Unknown Rx SUCCINATE ER TAB] Doxycycline [Vibramycin CAP] 100 mg PO Q12HR #14 capsule 05/02/17 Unknown Rx Ibuprofen [Motrin] 800 mg PO Q8HR PRN #15 tablet 05/02/17 Unknown Rx ED Abscess Boil Physical Exam - Exam General: Vital signs noted. No distress. Alert and acting appropriately. Size: 3 cm Exam: Yes Tenderness, Yes Fluctuance, Yes Surrounding Cellulites/Erythema, Yes Normal Neurologic Exam, Yes Normal Circulation, No Lymphangitis, No Crepitation , No Heart Murmur Exam: The there are several other small pustules on the scalp that are more consistent with folliculitis and did not need drained. Patient has no other exam abnormalities. Patient is in no acute distress and does not appear ill appearing. Heart and lungs are normal. I & D Note - I & D Note I & D Note: Patient was draped in sterile fashion with Betadine patient had the area numbed with 1% lidocaine. A 11 blade scalpel was used to make a 1 cm incision large amounts of pus was expressed quarter inch iodoform gauze was placed within the wound. The wound was probed of for loculations before the iodoform gauze was placed. Patient tolerated procedure well. ED Course Vital Signs 05/01/17 05/01/17 05/01/17 21:28 21:44 22:50 Temperature 98.5 F Pulse Rate 96 H Respiratory 18 20 Rate Blood Pressure 154/83 154/83 O2 Sat by Pulse 98 Oximetry Critical care attestation.: If time is entered above; I have spent that time in minutes in the direct care of this critically ill patient, excluding procedure time. ED Disposition Clinical Impression: Abscess, Folliculitis Disposition: DC-01 TO HOME OR SELFCARE Is pt being admited?: No Does the pt Need Aspirin: No Condition: Fair Instructions: Abscess (ED) Prescriptions: Doxycycline [Vibramycin CAP] 100 mg PO Q12HR #14 capsule Ibuprofen [Motrin] 800 mg PO Q8HR PRN #15 tablet PRN Reason: Pain Referrals: PRIMARY CARE, [Primary Care Provider] - 3-5 Days
[2017-05-02 02:05] VITALS: BP 158/90
== END 2017-05-02 02:05 | disposition home or self-care (01) ==
LOC: ED 21:25
DX: L02.811 Cutaneous abscess of head [any part, except face] (principal); L73.8 Other specified follicular disorders; I10 Essential (primary) hypertension; Z88.0 Allergy status to penicillin; Z88.6 Allergy status to analgesic agent